=== PATIENT | female | born 1980 | race Caucasian/White ===

== ENCOUNTER 2024-02-18 16:19 | Emergency (ER) | payer OTHER, SELFPAY ==
[2024-02-18 16:30] VITALS: BP 124/85; PULSE 72; RESP 20; TEMP 36.8; O2SAT 98
--- NOTE | 2024-02-18 20:41 | ED.GENADULT ---
HPI - General Adult General Chief complaint: Dental/Oral Stated complaint: Toothache Time Seen by Provider: 02/18/24 16:48 Source: patient, RN notes reviewed and old records reviewed Mode of arrival: ambulatory Limitations: no limitations History of Present Illness HPI narrative: 43-year-old female to [facility] for complaint right upper molar pain , right facial swelling and gingival swelling for 3 days. Patient endorses history of multiple dental caries and states that she cannot recall the last time she was seen by a dentist. Patient has been attempting to treat at home with ice and ibuprofen with some relief. Patient denies allergies, fever, gingival drainage, headache, sinus congestion. Patient able to tolerate fluids by mouth. Respirations even and nonlabored. Patient able to speak in complete sentences without difficulty and able to control secretions. Patient in no acute distress. Related Data Allergies Allergy/AdvReac Type Severity Reaction Status Date / Time No Known Allergies Allergy Verified 02/18/24 16:40 Review of Systems Review of Systems: All systems reviewed & are unremarkable except as noted in HPI and below Constitutional: Constitutional: Reports as per HPI, Denies fatigue, Denies fever(s) and Denies poor appetite Eyes: Eyes: Reports no additional eye complaints ENT: Reports as per HPI, Reports halitosis, Denies change in voice, Reports dental pain, Denies dysphagia, Denies dizziness, Reports facial pain ( Right), Denies hoarseness, Denies lip swelling, Reports mouth pain, Denies odynophagia, Denies sore throat, Denies throat swelling and Denies tongue swelling Cardiovascular: Cardiovascular: Reports no additional cardiovascular complaints, Denies chest pain and Denies dyspnea Respiratory: Respiratory: Reports no additional respiratory complaints, Denies cough and Denies dyspnea Musculoskeletal: Musculoskeletal: Reports no additional musculoskeletal complaints Neurologic: Reports system reviewed and no additional complaints, except as documented Psychiatric: Psychiatric: Reports no additional psychiatric complaints PMFSH Comments At the time of my signature, I reviewed and agree with the nursing past medical, surgical, social, and family history. There is no relevant family history pertinent to the patient complaint. Exam Const: General: cooperative, no acute distress, alert, in distress mild, tired appearing, uncomfortable and well nourished Nutritional Appearance: well nourished Orientation/consciousness: patient oriented x3 Limitations: no limitations HENMT: Head: normal to inspection Ears: external ears normal Face/Nose/Sinus: Normal external nose present, Normal nares present, No erythema, edema ( right maxillary region, mildly edematous) and Facial tenderness on exam of face and sinuses ( right maxillary region) Face and sinus: normal facial exam, no erythema and no edema Mouth: Yes Normal oral and palatal mucosa present, Yes lip normal, Yes tongue normal, Yes oropharynx normal, Yes moist mucous membranes, No drooling, Yes malodorous breath fetid, No muffled voice and Yes Abnormal oral and palatal mucosa present erythematous and edematous Teeth and gingiva: abnormal tooth and associated gingiva, caries, gingiva abnormal edematous, diffusely erythematous and tender; without any purulent discharge, multiple restorations and poor dentition Throat: posterior oropharynx normal and uvula midline Eyes: General: appearance normal, both eyes and all related structures Neck: Neck: normal visual inspection, full ROM and no meningeal signs Lymphatic: lymphadenopathy right anterior cervical Chest: Chest palpation & inspection: normal inspection of the chest Resp: Effort & Inspection: normal respiratory effort and able to speak in complete sentences Auscultation: clear to auscultation bilaterally Cardio: Jugular venous distension: no JVD Rate: regular rate Rhythm: regular rhythm Back/Spine/Pelv
== END 2024-02-18 17:02 | disposition home or self-care (01) ==
PROVIDERS: Emergency Provider Nurse Practitioner Family
DX: K02.9 Dental caries, unspecified (principal); K04.7 Periapical abscess without sinus; S02.5XXA Fracture of tooth (traumatic), initial encounter for closed fracture; X58.XXXA Exposure to other specified factors, initial encounter
CPT/HCPCS: 99213; G0463

== ENCOUNTER 2024-04-22 17:45 | Emergency (ER) | payer OTHER, SELFPAY ==
[2024-04-22 17:53] VITALS: BP 121/85; PULSE 62; RESP 20; TEMP 37; O2SAT 100
--- NOTE | 2024-04-22 18:20 | ED.DENTAL ---
HPI - Dental/Oral General Chief complaint: Dental/Oral Stated complaint: tooth abcess Source: patient Mode of arrival: ambulatory History of Present Illness HPI Narrative: 43-year-old female presented for complaint of right upper dental pain with mild facial swelling over the past few days. States she was taking amoxicillin 2-3 weeks ago as prescribed by the dentist for infection in the same tooth. Now taking ibuprofen for pain. Scheduled with dentist in 1 week. Denies n/v/d/f/c. MD Complaint: tooth pain Related Data Allergies Allergy/AdvReac Type Severity Reaction Status Date / Time No Known Allergies Allergy Verified 02/18/24 16:40 Review of Systems Review of Systems: CONSTITUTIONAL: Denies body aches, fever, chills ENT: Denies rhinorrhea, congestion, sore throat, or otalgia. Reports dental pain CARDIOVASCULAR: Denies chest pain, palpitations RESPIRATORY: Denies cough or dyspnea. SKIN: Denies rash, itching, or wounds. MUSCULOSKELETAL: Denies myalgia. NEUROLOGIC: Denies headache, numbness, tingling, or weakness. PMFSH Comments At time of signature, I have reviewed and agree with nursing past medical, surgical, social and family history unless otherwise noted. Please see nursing chart for further information. There is no relevant family history pertinent to the presenting complaint Exam Narrative: GENERAL: Appears in pain; no acute distress. EYES: EOMI. No redness or drainage. Conjunctivae normal. ENT: Dental pain location of #3, with surrounding gum swelling and tenderness noted, no active drainage. No facial swelling. Mucous membranes pink and moist. TMs normal bilaterally. Throat normal. no dysphagia, odynophagia, dysphonia, or dyspnea. No uvular deviation or soft palate edema. NECK: Normal AROM. No lymphadenopathy. no induration below mandible, no neck pain. CHEST: No respiratory distress. Clear to auscultation. HEART: Regular rate and rhythm. No murmur appreciated. SKIN: Warm, dry, Normal skin turgor. NEURO: No focal deficits. Alert and oriented x3. Gait steady. Course Course Emergency Course: Patient is aware of diagnosis, understands and agrees to treatment plan. Anticipatory guidance given. Patient agrees to follow-up as directed and is aware of reasons to seek care at the emergency department. Portions of this record may have been created with voice recognition software Level of Care: Express Care Visit Vital Signs Vital signs: Vital Signs Temperature 98.6 F 04/22/24 17:53 Pulse Rate 62 04/22/24 17:53 Respiratory Rate 20 04/22/24 17:53 Blood Pressure 121/85 04/22/24 17:53 Pulse Oximetry 100 04/22/24 17:53 Oxygen Delivery Room Air 04/22/24 17:53 Temperature 98.6 F 04/22/24 17:53 Pulse Rate 62 04/22/24 17:53 Respiratory Rate 20 04/22/24 17:53 Blood Pressure 121/85 04/22/24 17:53 Pulse Oximetry 100 04/22/24 17:53 Oxygen Delivery Room Air 04/22/24 17:53 MDM - Dental/Oral MDM Narrative Medical decision making narrative: Patients pain and complaint coupled with physical findings are consistent with dental abscess. There are no focal signs of space occupying lesions that are compromising to the airway; Patient is non-toxic appearing. The floor of the mouth is soft with no signs of Durga's Angina; Patient is without trismus or drooling and able to swallow secretions. Patient is felt appropriate for discharge home with dental follow up. Differential Diagnosis Differential diagnosis: Likely gingival abscess, dental caries, toothache, dental abscess, fracture of tooth and aphthous ulcer Discharge Plan Discharge Clinical Impression: Dental abscess Patient Disposition: Home, Self-Care Condition: Stable Instructions: Antibiotic Form, Dental Abscess (ED) Additional Instructions: Take antibiotic as directed May apply heat or ice to the face Gentle brushing and flossing. Rinse mouth with warm salt water at least 2 ti
== END 2024-04-22 18:30 | disposition home or self-care (01) ==
PROVIDERS: Emergency Provider Nurse Practitioner Family
DX: K04.7 Periapical abscess without sinus (principal)
CPT/HCPCS: 99213; G0463